=== PATIENT | female | born 1995 | race Caucasian/White ===

== ENCOUNTER 2017-07-03 13:48 | Emergency (ER) | payer OTHER ==
[~2017-07-03] VITALS: Ht 165.1 cm; Wt 98.0 kg
[2017-07-03 14:16] VITALS: Ht 165.1 cm; Wt 98.0 kg
[2017-07-03 16:16] VITALS: BP 158/103
== END 2017-07-03 16:16 | disposition home or self-care (01) ==
LOC: ED 13:48
DX: S83.004A Unspecified dislocation of right patella, initial encounter (principal); Z88.1 Allergy status to other antibiotic agents; Z88.5 Allergy status to narcotic agent; Z88.8 Allergy status to other drugs, medicaments and biological substances; X58.XXXA Exposure to other specified factors, initial encounter; Y93.89 Activity, other specified; Y92.89 Other specified places as the place of occurrence of the external cause; Y99.8 Other external cause status